=== PATIENT | female | born 1950 | race Caucasian/White ===

== ENCOUNTER 2019-11-15 12:09 | Emergency (ER) | payer MEDICARE, OTHER ==
[~2019-11-15] VITALS: Ht 165.1 cm; Wt 67.6 kg
[~2019-11-15 12:09] MED LIST: ANASTROZOLE1 MG PO
[2019-11-15 12:30] VITALS: BP 112/72
[2019-11-15] MEDS ORDERED: Meclizine 25mg tab ORAL ONE (13:30)
--- NOTE | 2019-11-15 13:47 | Emergency Room Report ---
History of Present Illness General Chief Complaint: Vertigo Source: Patient Present Illness HPI Patient is a 69-year-old female presents after increased dizziness for 2 days. Previous similar symptoms in the past. Had been having increased dizziness with movements. Denies any extremity weakness. Had not been vomiting. Denies any hearing loss or ringing or ears. No recent trauma. Allergies: Coded Allergies: No Known Allergies (Unverified , 09/10/15) COVID-19 Screening Contact w/high risk pt: No Experienced COVID-19 symptoms?: No COVID-19 Testing performed EXPLORATION MANAGER: No Patient History Past Medical History: see triage record Now: No Reviewed Nursing Documentation: PMH: Agreed; PSxH: Agreed Nursing Documentation-PMH Hx Cardiac Problems: No - mastectomy 10/2009 Review of Systems All Other Systems: negative except mentioned in HPI Physical Exam Vital Signs Date Time Temp Pulse Resp B/P (MAP) Pulse Ox O2 Delivery O2 Flow Rate FiO2 11/15/19 12:14 98.2 65 20 103/67 (79) 96 Room Air Sp02 EP Interpretation: reviewed, normal General Appearance: normal inspection, well appearing, no apparent distress, alert, GCS 15 Head: atraumatic ENT: normal ENT inspection, hearing grossly normal, normal voice Neck: normal inspection, full range of motion, supple, no bony tend Respiratory: normal inspection, lungs clear, normal breath sounds, no respiratory distress, no retraction, no wheezing Cardiovascular #1: regular rate, rhythm, no edema Gastrointestinal: normal inspection, normal bowel sounds, non tender, soft, no guarding, no hernia Genitourinary: no CVA tenderness Musculoskeletal: normal inspection, back normal, normal range of motion Neurologic: alert, motor strength/tone normal, operations label clerk III-XII nml as tested, oriented x3, cerebellar normal, responsive, speech normal, normal inspection Psychiatric: normal inspection, judgement/insight normal, mood/affect normal Medical Decision Making Diagnostic Impression: Primary Impression: Vertigo ER Course Patient presented for vertigo. Differential diagnosis include was not limited to hyponatremia, labyrinth-itis, benign positional vertigo, CVA among others. Patient does have an overall benign exam however given the patient's. Patient' s laboratory testing was unremarkable. CT imaging of the head showed no evidence of acute CVA. Patient was given meclizine as well as IV fluids with improvement in her symptoms. She states she is had episodes of this in the past. Patient was advised to follow-up with her primary care physician for recheck. No evidence of neurologic deficit or gait instability and patient is able to ambulate without assistance. The patient is advised to follow up with primary care doctor in 1-2 days. Patient is advised to return if any worsening condition or if any changes in status that are concerning. This report is dictated with [email or web address] goods fabricator software which may occasionally lead to discrepancies related to use of this software. Patient presented for dizziness. Differential diagnosis included was not limited to CVA, vertebrobasilar insufficiency, myocardial infarction, benign positional vertigo, labyrinthitis, aspirin overdose among others. The patient has exam consistent with peripheral vertigo. Patient was given oral meclizine. Patient had improvement in symptoms. Patient was noted to be able to ambulate without assistance. She was given prescription for meclizine. She was advised to follow-up with her primary care physician for recheck. CT imaging showed no evidence of acute pathology. Last Vital Signs Date Time Temp Pulse Resp B/P (MAP) Pulse Ox O2 Delivery O2 Flow Rate FiO2 11/15/19 12:14 98.2 65 20 103/67 (79) 96 Room Air Status: improved Disposition: HOME, SELF-CARE Condition: Stable Scripts Meclizine Hcl* (MECLIZINE*) 25 Mg Tablet 25 MG ORAL THREE TIMES A DAY, #30 TAB Prov: Gaetano Burris MD 11/15/19 Referrals: NOT CHOSEN [facility]/,REFERRING (PCP) Gaetano Burris MD Nov 15, 2019 13:47
[2019-11-15 14:01] LABS: BASOPHILS % (AUTO) 1.1 % (0.0-2.0); EOSINOPHILS % (AUTO) 1.7 % (0.0-3.0); HEMATOCRIT 41.4 % (37.0-47.0); HEMOGLOBIN 13.6 G/DL (12.0-16.0); LYMPHOCYTES % (AUTO) 37.4 % (20.0-45.0); MEAN CORPUSCULAR VOLUME 97 FL (80-99); MONOCYTES % (AUTO) 7.7 % (1.0-10.0); NEUTROPHILS % (AUTO) 52.1 % (45.0-75.0); PLATELET COUNT 172 K/UL (150-450); RED BLOOD COUNT 4.26 M/UL (4.20-5.40); RED CELL DISTRIBUTION WIDTH 11.2 % (11.6-14.8); WHITE BLOOD COUNT 6.3 K/UL (4.8-10.8)
[2019-11-15 14:07] LABS: ANION GAP 8 mmol/L (5-15); BLOOD UREA NITROGEN 10 mg/dL (7-18); CALCIUM 9.5 MG/DL (8.5-10.1); CARBON DIOXIDE 31 MMOL/L (21-32); CHLORIDE 109 MMOL/L (98-107); CREATININE 0.8 MG/DL (0.55-1.30); POTASSIUM 4.3 MMOL/L (3.5-5.1); SODIUM 148 MMOL/L (136-145)
[2019-11-15 14:11] LABS: ALANINE AMINOTRANSFERASE 13 U/L (12-78); ALBUMIN 3.7 G/DL (3.4-5.0); ALBUMIN/GLOBULIN RATIO 1.2 (1.0-2.7); ALKALINE PHOSPHATASE 50 U/L (46-116); ASPARTATE AMINO TRANSFERASE 19 U/L (15-37); BILIRUBIN,TOTAL 0.3 MG/DL (0.2-1.0)
--- NOTE | 2019-11-15 14:17 | Diagnostic Imaging Report ---
Indications: Vertigo and vomiting Technique: Spiral acquisitions obtained through the brain. Angled axial and coronal 5 x 5 mm slices were reconstructed. Total dose length product 1072 mGycm. CTDI vol(s) 53 mGy. Dose reduction achieved using automated exposure control Comparison: None. Findings: No acute intracranial hemorrhage or edema. No mass effect nor midline shift. Normal ledesma-white differentiation. Normal size ventricles and extra-axial CSF spaces. The calvarium is intact. The mastoids are clear. Impression: Negative The CT scanner at [facility] is accredited by the [employer] and the scans are performed using protocols designed to limit radiation exposure to as low as reasonably achievable to attain images of sufficient resolution adequate for diagnostic evaluation.
[2019-11-15] MEDS ORDERED: MECLIZINE HCL25 MG ORAL (14:28)
[2019-11-15 14:45] VITALS: BP 115/67
== END 2019-11-15 14:45 | disposition home or self-care (01) ==
LOC: EMR 12:45
DX: R42 Dizziness and giddiness (principal); Z90.13 Acquired absence of bilateral breasts and nipples
CPT/HCPCS: 36415; 70450; 80053; 85025; 96360; 99284; J7030